=== PATIENT | male | born 1980 | race Caucasian/White ===

== ENCOUNTER 2017-07-22 12:23 | Emergency (ER) | payer BC ==
[~2017-07-22] VITALS: Ht 182.9 cm; Wt 97.9 kg
[2017-07-22 12:27] VITALS: BP 151/87; PULSE 97; RESP 18; TEMP 98.4; O2SAT 98
--- NOTE | 2017-07-22 12:49 | PD ---
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 States that the patient had a "nonspecific rash" during the procedure in the operating room on Thursday and patient developed lesions 2 days later. Lesions started small, 2-5mm, then increased and multiplied. Slightly pruritic, started on his forearms and have spread to his upper arms over the last day. Topical steroids have not improved his condition. Says he stayed in a hotel 7 days before the rash began. Denies new soaps, lotions, foods, medications, illicit drugs, travel. Denies fever, chills, chest pain, back pain, flank pain, urinary complaints. He denies chronic medical problems. PFSH Past Medical History Cardiovascular Problems: Yes (HTN) Social History Tobacco Use: No Allergies-Medications (Allergen,Severity, Reaction): Coded Allergies: Sulfa (Sulfonamide Antibiotics) (Verified Allergy, Unknown, RASH, 07/22/17 ) Reported Meds & Prescriptions Reported Meds & Active Scripts Active Permethrin Topical 5% (Permethrin) 5% Cream 1 Applic TOPICAL ONCE Reported Triamcinolone Topical (Triamcinolone Acetonide) 0.1 % Oint 1 Applic TOPICAL BID Review of Systems Except as stated in HPI: all other systems reviewed are Neg Physical Exam Narrative GENERAL: Well-nourished, well-developed patient. SKIN: No ecchymoses or lesions. Cool and dry. Rash in bilateral upper extremities. Scattered 2-10 mm Papules with surrounding erythema. No burrows noted. HEAD: Normocephalic. EYES: No scleral icterus. No injection or drainage. NECK: Supple, trachea midline. No JVD or lymphadenopathy. CARDIOVASCULAR: Regular rate and rhythm without murmurs, gallops, or rubs. RESPIRATORY: Breath sounds equal bilaterally. No accessory muscle use. GASTROINTESTINAL: Abdomen soft, non-tender, nondistended. MUSCULOSKELETAL: No cyanosis, or edema. BACK: Nontender without obvious deformity. No CVA tenderness. Data Data Last Documented VS Vital Signs Date Time Temp Pulse Resp B/P (MAP) Pulse Ox O2 Delivery O2 Flow Rate FiO2 07/22/17 12:27 98.4 97 18 151/87 (108) 98 Orders Orders Ed Discharge Order (07/22/17 12:52) MDM Medical Decision Making Medical Screen Exam Complete: Yes Emergency Medical Condition: Yes Differential Diagnosis scabies vs nonspecific rash vs contact dermatitis Narrative Course 37m here with rash for 3 days after moving a patient in the OR. He says he believes he obtained this rash from work. This is possibly scabies so will treat as such. Says Topical steroids do not seem to be helping. Permethrin per package instructions. may repeat in 14 days if persistent. Follow up with dermatology and PCP. Avoid contact with others. Diagnosis Primary Impression: Rash and nonspecific skin eruption Referrals: Primary Care Physician Departure Forms: Tests/Procedures, Work Release Enter return to work date: Jul 24, 2017 Additional Instructions: Keep lesions clean and dry. Use permethrin as prescribed. If you develops signs of infection that is increased redness, swelling or develop pus return to the emergency department. Follow-up with dermatology further treatment and evaluation Avoid contact with others until the rash is cleared. Scripts Permethrin Topical 5% (Permethrin Topical 5%) 5% Cream 1 APPLIC TOPICAL ONCE for Scabies, #1 TUBE 1 Refill Prov: Reyna Isidro MD 07/22/17 Disposition: 01 DISCHARGE HOME Condition: Stable Citlali Wheeler Jul 22, 2017 12:49
[2017-07-22] MEDS ORDERED: PERM5CRE TOPICAL (12:51)
[2017-07-22] MEDS ORDERED: TRIAM.1%T TOPICAL (12:57)
== END 2017-07-22 13:10 | disposition home or self-care (01) ==
LOC: PHED 12:23 → PHEFT 13:10
DX: R21 Rash and other nonspecific skin eruption (principal)
CPT/HCPCS: 99283